=== PATIENT | female | born 1980 | race Caucasian/White ===

== ENCOUNTER 2017-05-20 03:23 | Emergency (ER) | payer MEDICAID ==
[2017-05-20 03:29] VITALS: O2SAT 96
[2017-05-20] MEDS ORDERED: IBUPROFEN 600 MG TAB PO ONE (03:44)
--- NOTE | 2017-05-20 03:50 | EDPHY ---
H & P Stated Complaint: LLE pain, atraumatic Time Seen by Provider: 05/20/17 03:33 HPI/ROS: Chief Complaint: Left leg pain HPI: 37-year-old woman with a history of sciatica presenting with worsening left leg pain this morning. Patient states the pain is been acting up for the last several days. Which went to get out of bed this morning it was a 10/10. Now is for at out of 10. She did take 4 baby aspirin because of so the medicines they had at home. No new numbness or weakness. She is ambulating without any difficulty. No new injuries. Last time she had this she had physical therapy and acupuncture and was taking ibuprofen. No fevers or chills. No history of IV drug use or risks for infection. ROS: 10 point Review of Systems is negative except as noted in the HPI. PMH: Schizoaffective disorder, sciatica Medications: Seroquel, Latuda, propranolol, metformin, Cogentin, Topamax Allergies: Invega, Risperdal, Abilify Social History: No smoking, no alcohol, no recreational drug use Family History: non-contributory Physical Exam: Gen: Awake, Alert, No Distress HEENT: Nose: no rhinorrhea Eyes: PERRLA, EOMI Mouth: Moist mucosa Neck: Supple, no JVD Chest: nontender, lungs clear to auscultation Heart: S1, S2 normal, no murmur Abd: Soft, non-tender, no guarding Back: no CVA tenderness, no midline tenderness Ext: no edema, non-tender Skin: no rash Neuro: CN II-XII intact, Sensation grossly intact, Strength 5/5 in bilateral upper and lower extremities Normal straight leg raise. Sensations intact in all dermatomes. Normal deep tendon reflexes bilateral lower extremities, toes are downgoing - Personal History LMP (Females 10-55): IUD In Place Current Tetanus/Diphtheria Vaccine: Yes - Medical/Surgical History Hx Asthma: No Hx Chronic Respiratory Disease: No Hx Diabetes: No Hx Cardiac Disease: No Hx Renal Disease: No Hx Cirrhosis: No Hx Alcoholism: Yes Hx HIV/AIDS: No Hx Splenectomy or Spleen Trauma: No Other PMH: SCHIZOAFFECTIVE, CARPAL TUNNEL, RECOVERING ALCOHOLIC - Social History Smoking Status: Never smoked Constitutional: Initial Vital Signs Temperature (C) 36.8 C 05/20/17 03:26 Heart Rate 55 L 05/20/17 03:26 Respiratory Rate 14 05/20/17 03:26 Blood Pressure 100/65 05/20/17 03:26 O2 Sat (%) 96 05/20/17 03:26 O2 Delivery Mode Room Air Allergies/Adverse Reactions: aripiprazole [From Abilify] Allergy (Verified 11/19/16 18:22) paliperidone [From Invega] Allergy (Verified 11/19/16 18:22) risperidone Allergy (Verified 11/19/16 18:22) shellfish derived Allergy (Verified 11/19/16 18:22) Home Medications: Medication Instructions Recorded Seroquel 02/05/16 Cogentin 02/17/16 Metformin 1000 mg 02/17/16 Topamax 02/17/16 Latuda 11/19/16 MIRENA 11/19/16 Medical Decision Making ED Course/Re-evaluation: Patient is feeling improved. She is ambulating without any difficulties in the emergency department. Will discharge with follow-up with primary care physician [id number] analgesia. - Data Points Medications Given: Discontinued Medications Ibuprofen (Motrin) 600 mg PO EDNOW ONE Stop: 05/20/17 03:45 Last Admin: 05/20/17 03:55 Dose: 600 mg Departure - Departure Disposition: Home, Routine, Self-Care Clinical Impression: Sciatica Condition: Good Instructions: Sciatica (ED) Additional Instructions: Follow up with primary care physician in 3-4 days for re-evaluation. You may take ibuprofen 600 mg 3 times a day for aches and pains. You may also take acetaminophen as needed for pain. Return emergency depart for increasing pain, numbness, weakness, or any other concerns. Referrals: [facility] [Other] - As per Instructions
[2017-05-20 04:28] VITALS: BP 104/64; PULSE 61; RESP 15; TEMP 97.9
== END 2017-05-20 04:28 | disposition home or self-care (01) ==
DX: M54.30 Sciatica, unspecified side (principal)

== ENCOUNTER 2017-05-22 17:12 | Emergency (ER) | payer MEDICAID ==
[2017-05-22 17:22] VITALS: RESP 16; TEMP 97.7
--- NOTE | 2017-05-22 18:08 | EDPHY ---
H & P Stated Complaint: Pain in left leg from hip to ankle.Seen earlier this week, Source: Patient Exam Limitations: No limitations - Medical/Surgical History Hx Asthma: No Hx Chronic Respiratory Disease: No Hx Diabetes: No Hx Cardiac Disease: No Hx Renal Disease: No Hx Cirrhosis: No Hx Alcoholism: Yes Hx HIV/AIDS: No Hx Splenectomy or Spleen Trauma: No Other PMH: SCHIZOAFFECTIVE, CARPAL TUNNEL, RECOVERING ALCOHOLIC - Social History Smoking Status: Never smoked HPI/ROS: CHIEF COMPLAINT: Left sciatica HISTORY OF PRESENT ILLNESS: Patient complains of left-sided sciatica. This has been present for several days. Originally started to 3 months ago. Over the past few days it has been mild to moderate pain. Starts in the left buttock and radiates down the left leg. No numbness, tingling or weakness. No midline low back pain. No saddle anesthesia. No incontinence of bowel or bladder. She did have an injury back in January, for which she was never evaluated with x-ray. She has no ongoing or acute pain in the low back at this time. Been taking ibuprofen with minimal improvement. It is better when she lays still. Worse when she ambulates or bears weight. No other associated complaints or modifying factors. REVIEW OF SYSTEMS: Ten systems reviewed and are negative unless otherwise noted in the HPI PAST MEDICAL HISTORY: Schizoaffective disorder, sciatica SOCIAL HISTORY: Nonsmoker. FAMILY HISTORY: Noncontributory EXAMINATION General Appearance: Alert, no distress Head: normocephalic, atraumatic Eyes: Pupils equal and round, no conjunctival pallor or injection Respiratory: No distress or retractions Cardiovascular: Regular rate. Pulses are intact distally in symmetrically 2+ in the DP Back: non-tender, no bony abnormalities. No crepitus, step-off or deformity. Neurological: GCS 15. A&O, nonfocal, antalgic but steady gait. Strength is symmetric in all 4 limbs. symmetric patellar reflexes at 2+ Skin: Warm and dry, no rash. No petechiae or purpura. Extremities: Tenderness over the left upper buttock. No bony tenderness of the lower extremity otherwise. Range of motion is intact but painful with flexion extension of the hip and straight leg raises. Psychiatric: Mood and affect normal DIFFERENTIAL DIAGNOSES: Including but not limited to sciatica, lumbar radiculopathy, neuropathy, neurapraxia, lumbar fracture MDM: 6:15 p.m. Left lower extremity pain consistent with previous episodes of sciatica for the patient. She has no low back pain at this time. No new trauma but did have a fall back in January, for which she never had an x-ray. She is fully neuro intact without any sensory or motor deficits. I have ordered x-ray of the lumbar spine, Flexeril and prednisone. Suspected this is truly sciatica. She is in no acute distress. 6:55 p.m. X-ray is unremarkable for acute fractures. There is no levoscoliosis noted. She is actually ambulatory in the room at this time. Feeling somewhat better. Discharged home with 4 more days of steroid, Flexeril p.r.n., Underwood p.r.n. and instructions to follow up with specialist for definitive care. Return here for worsening pain, weakness, numbness, tingling, incontinence or difficulty ambulating. She is comfortable this plan and discharged home stable condition, ambulatory without assistance. SUPERVISION: This patient was independently evaluated without direct examination by the attending physician. Case was discussed with attending physician. (Silvio Otero ) Constitutional: Initial Vital Signs Temperature (C) 97.7 F 05/22/17 17:19 Heart Rate 71 05/22/17 17:19 Respiratory Rate 16 05/22/17 17:19 Blood Pressure 103/66 05/22/17 17:19 O2 Sat (%) 97 05/22/17 17:19 O2 Delivery Mode Room Air Allergies/Adverse Reactions: aripiprazole [From Abilify] Allergy (Verified 11/19/16 18:22) paliperidone [From Invega] Allergy (Verified 11/19/16 18:22) risperidone Allergy (Verified 11/19/16 18:22) shellfish derived Allergy (Verified 11/19/16 18:22) Home Medications: Medication Instructions Recorded Seroquel 02/05/16 Cogentin 02/17/16 Metformin 1000 mg 02/17/16 Topamax 02/17/16 Latuda 11/19/16 MIRENA 11/19/16 Cyclobenzaprine [Flexeril 10 MG 10 mg PO TID PRN #15 tab 05/22/17 (*)] Hydrocodone/APAP 5/325 [Underwood 1 - 2 tab PO Q4H PRN #14 tab 05/22/17 5/325 (*)] predniSONE [Deltasone] 60 mg PO DAILY #12 tablet 05/22/17 Medical Decision Making - Diagnostics Imaging Results: Imaging Impressions Lumbar Spine X-Ray 05/22/17 18:13 Impression: 1. Mild levoscoliosis, which may be positional. 2. No lumbar compression fractures, spondylolisthesis, or significant degenerative changes. ED Course/Re-evaluation: I did not see this patient while she was in the emergency department. However her care was discussed with the PA while the patient was in the department. I agree with treatment plan and management (Victor M Tamez) - Data Points Medications Given: Discontinued Medications Cyclobenzaprine HCl (Flexeril) 10 mg PO EDNOW ONE Stop: 05/22/17 18:15 Last Admin: 05/22/17 18:23 Dose: 10 mg Prednisone (Prednisone) 60 mg PO EDNOW ONE Stop: 05/22/17 18:15 Last Admin: 05/22/17 18:23 Dose: 60 mg Departure - Departure Disposition: Home, Routine, Self-Care Clinical Impression: Sciatica Qualifiers: Laterality: left Qualified Code(s): M54.32 - Sciatica, left side Condition: Good Instructions: Sciatica (ED), Lumbar Radiculopathy (ED) Additional Instructions: 1. Return to the ER for worsening pain, numbness, tingling, weakness, incontinence 2. Follow up with specialist for definitive care Referrals: [facility] [Other] - As per Instructions Ernesto Morin MD [Medical Doctor] - As per Instructions Prescriptions: Cyclobenzaprine [Flexeril 10 MG (*)] 10 mg PO TID PRN #15 tab PRN Reason: Spasms Hydrocodone/APAP 5/325 [Underwood 5/325 (*)] 1 - 2 tab PO Q4H PRN #14 tab PRN Reason: Pain, Moderate predniSONE [Deltasone] 60 mg PO DAILY #12 tablet
[2017-05-22] MEDS ORDERED: CYCLOBENZAPRINE 10 MG TAB PO ONE (18:14)
[2017-05-22] MEDS ORDERED: predniSONE 20 MG TAB PO ONE (18:14)
[2017-05-22 19:09] VITALS: BP 106/68; PULSE 72; O2SAT 96
== END 2017-05-22 19:09 | disposition home or self-care (01) ==
DX: M54.32 Sciatica, left side (principal)

== ENCOUNTER 2017-05-28 04:33 | Emergency (ER) | payer MEDICAID ==
[2017-05-28 04:40] VITALS: BP 96/60; PULSE 62; RESP 14; TEMP 97.5; O2SAT 97
--- NOTE | 2017-05-28 04:52 | EDPHY ---
H & P Stated Complaint: L leg pain HPI/ROS: HPI CHIEF COMPLAINT: Left leg pain HISTORY OF PRESENT ILLNESS: This patient 37-year-old female significant past medical history for schizoaffective disorder, previous alcohol use, presents emergency room with left leg pain consistent with sciatica. She was seen here previously 2 separate visits. She is having a hard time getting follow-up care with a primary care doctor. She states she has been doing rather well. She has been taking the medications as prescribed. She presents emergency room this evening with left flank pain it is described as sharp stabbing down her left gluteus left posterior leg to her knee. Does not go to her foot. It is worse when she goes to walk with leg movement. Better at rest. Denies recent trauma. No fever. No saddle anesthesia no numbness or tingling, no focal weakness. No midline lumbar back pain. No trauma. I did review her previous 2 ER visits for this. She does tell me that she took 800 mg ibuprofen prior to arrival, and now is feeling better she tells me she does really feel like she needs to be here given that her pain is well controlled now. She is having trouble getting with her primary care doctor I told her to please call him again and states that she was in the emergency room. They should follow up sooner. She probably would benefit from physical therapy. I have also referred her Neurosurgery. She does understand of course to follow up with primary care doctor however she has severe pain worsening of condition she should return emergency room she understands. Explain or place her on a short course of steroids again for 3 days, Flexeril, and continue ibuprofen with food not empty stomach. Past Medical History: Alcoholism, sciatica, schizoaffective disorder Past Surgical History: No recent surgical history Social History: Denies daily use of drugs alcohol tobacco products Family History: Noncontributory ROS REVIEW OF SYSTEMS: A comprehensive 10 point review of systems is otherwise negative aside from elements mentioned in the history of present illness. Exam Constitutional triage nursing summary reviewed, vital signs reviewed, awake/ alert. Eyes normal conjunctivae and sclera, EOMI, PERRLA. HENT normal inspection, atraumatic, moist mucus membranes, no epistaxis, neck supple/ no meningismus, no raccoon eyes. Respiratory clear to auscultation bilaterally, normal breath sounds, no respiratory distress, no wheezing. Cardiovascular rate normal, regular rhythm, no murmur, no edema, distal pulses normal. Gastrointestinal soft, non-tender, no rebound, no guarding, normal bowel sounds, no distension, no pulsatile mass. Genitourinary no CVA tenderness. Musculoskeletal no midline vertebral tenderness, full range of motion, no calf swelling, no tenderness of extremities, no meningismus, good pulses, neurovascularly intact. Left leg: Neurovascular intact good distal pulse. Warm extremity good cap refill, good ambulate well. No midline lumbar spine pain. Skin pink, warm, & dry, no rash, skin atraumatic. Neurologic awake, alert and oriented x 3, AAOx3, moves all 4 extremities equally, motor intact, sensory intact, CN II-XII intact, normal cerebellar, normal vision, normal speech. Psychiatric normal mood/affect. Heme/Lymph/Immune no lymphadenopathy. Differential Diagnosis: Includes but is not limited to in a particular order, nerve root compression, annular tear, sciatica, compression fracture, doubt epidural abscess. Medical Decision Making: Plan for this patient here prednisone in the emergency room, Flexeril. Close follow-up with her primary care doctor. Referral to Neurosurgery. Do recommend she gets physical therapy. She understands what to return to the emergency room for worsening pain, numbness or tingling, focal weakness, saddle anesthesia, fever. Source: Patient - Personal History LMP (Females 10-55): IUD In Place Current Tetanus/Diphtheria Vaccine: Yes - Medical/Surgical History Hx Asthma: No Hx Chronic Respiratory Disease: No Hx Diabetes: No Hx Cardiac Disease: No Hx Renal Disease: No Hx Cirrhosis: No Hx Alcoholism: Yes Hx HIV/AIDS: No Hx Splenectomy or Spleen Trauma: No Other PMH: PMHx: SCHIZOAFFECTIVE, CARPAL TUNNEL, RECOVERING ALCOHOLIC. PSHx: uterine fibroid removal, hand surgery (R) - Social History Smoking Status: Never smoked Constitutional: Initial Vital Signs Temperature (C) 36.4 C 05/28/17 04:37 Heart Rate 62 05/28/17 04:37 Respiratory Rate 14 05/28/17 04:37 Blood Pressure 96/60 L 05/28/17 04:37 O2 Sat (%) 97 05/28/17 04:37 O2 Delivery Mode Room Air Allergies/Adverse Reactions: aripiprazole [From Abilify] Allergy (Verified 11/19/16 18:22) paliperidone [From Invega] Allergy (Verified 11/19/16 18:22) risperidone Allergy (Verified 11/19/16 18:22) shellfish derived Allergy (Verified 11/19/16 18:22) Home Medications: Medication Instructions Recorded Seroquel 02/05/16 Cogentin 02/17/16 Metformin 1000 mg 02/17/16 Topamax 02/17/16 Latuda 11/19/16 MIRENA 11/19/16 Cyclobenzaprine [Flexeril 10 MG 10 mg PO TID PRN #15 tab 05/22/17 (*)] Cogentin 05/28/17 Cyclobenzaprine [Flexeril 10 MG 10 mg PO TID PRN #15 tab 05/28/17 (*)] Propranolol HCl 05/28/17 predniSONE 60 mg PO DAILY #12 tab 05/28/17 predniSONE 60 mg PO DAILY #9 tab 05/28/17 Departure - Departure Disposition: Home, Routine, Self-Care Clinical Impression: Sciatica Qualifiers: Laterality: left Qualified Code(s): M54.32 - Sciatica, left side Condition: Good Instructions: Sciatica (ED), Lumbar Radiculopathy (ED) Additional Instructions: 1. Rest. 2. Use ice to help with back pain. 3. Take prednisone for 4 days. 4. Take her ibuprofen every 6-8 hours for pain control take it with a full stomach. 5. Return emergency room if you have severe pain. 6. I do recommend he follow up with her primary care doctor get set up for physical therapy. 7. I have referred you to Neurosurgery. Referrals: [facility] [Other] - As per Instructions Wilton Pettit MD [Medical Doctor] - As per Instructions Prescriptions: Cyclobenzaprine [Flexeril 10 MG (*)] 10 mg PO TID PRN #15 tab PRN Reason: Spasms predniSONE 60 mg PO DAILY #12 tab predniSONE 60 mg PO DAILY #9 tab
[2017-05-28] MEDS ORDERED: predniSONE 20 MG TAB PO ONE (04:53)
[2017-05-28] MEDS ORDERED: CYCLOBENZAPRINE 10 MG TAB PO ONE (04:53)
== END 2017-05-28 05:03 | disposition home or self-care (01) ==
DX: M54.32 Sciatica, left side (principal)

== ENCOUNTER 2017-06-07 04:09 | Emergency (ER) | payer MEDICAID ==
[2017-06-07 04:15] VITALS: RESP 16
--- NOTE | 2017-06-07 04:20 | EDPHY ---
H & P Stated Complaint: left leg pain- hx sciatica HPI/ROS: HPI CHIEF COMPLAINT: Left flank pain HISTORY OF PRESENT ILLNESS: This patient is a 37-year-old male significant past medical history for schizoaffective disorder, alcoholism and sciatica. Previously seen by myself for left-sided leg pain and sciatica. She presents to the emergency room with left leg pain consistent with her sciatica. She tells me she gets sharp stabbing pain left gluteus, left lateral posterior thigh down to her knee but does not go below her knee. Worse with leg movement. Better at rest. She decided come in the emergency room as she was having ongoing pain was prevented her from sleep. Ibuprofen did not help. She does tell me that she saw and follow up with her primary care doctor, also scheduled a physical therapy session. She also has had acupuncture that is help. She has not seen her surgery. She denies bowel or bladder incontinence, denies saddle anesthesia, denies midline back pain. Denies leg weakness. Pain is intermittent. Currently active. Here in the emergency room she is requesting Toradol IM, and Flexeril. Past Medical History: Sciatica, schizoaffective disorder, alcoholism Past Surgical History: No recent surgery Social History: Denies daily use of drugs alcohol tobacco Family History: Noncontributory ROS REVIEW OF SYSTEMS: A comprehensive 10 point review of systems is otherwise negative aside from elements mentioned in the history of present illness. Exam Constitutional triage nursing summary reviewed, vital signs reviewed, awake/ alert. Eyes normal conjunctivae and sclera, EOMI, PERRLA. HENT normal inspection, atraumatic, moist mucus membranes, no epistaxis, neck supple/ no meningismus, no raccoon eyes. Respiratory clear to auscultation bilaterally, normal breath sounds, no respiratory distress, no wheezing. Cardiovascular rate normal, regular rhythm, no murmur, no edema, distal pulses normal. Gastrointestinal soft, non-tender, no rebound, no guarding, normal bowel sounds, no distension, no pulsatile mass. Genitourinary no CVA tenderness. Musculoskeletal no midline vertebral tenderness, full range of motion, no calf swelling, no tenderness of extremities, no meningismus, good pulses, neurovascularly intact. Skin pink, warm, & dry, no rash, skin atraumatic. Neurologic awake, alert and oriented x 3, AAOx3, moves all 4 extremities equally, motor intact, sensory intact, CN II-XII intact, normal cerebellar, normal vision, normal speech. Psychiatric normal mood/affect. Heme/Lymph/Immune no lymphadenopathy. Differential Diagnosis: Includes but is not limited to in a particular order, sciatica, nerve root compression, annular tear, disc herniation, compression fracture. Medical Decision Making: Plan for this patient Toradol 30 mg IM, Flexeril 10 mg p.o.. Re-evaluate. Re-evaluation: 0519AM: Patient is feeling much better after IM Toradol, p.o. flexible. Ready for discharge home. Source: Patient - Personal History LMP (Females 10-55): Now Current Tetanus Diphtheria and Acellular Pertussis (TDAP): Yes - Medical/Surgical History Hx Asthma: No Hx Chronic Respiratory Disease: No Hx Diabetes: No Hx Cardiac Disease: No Hx Renal Disease: No Hx Cirrhosis: No Hx Alcoholism: Yes Hx HIV/AIDS: No Hx Splenectomy or Spleen Trauma: No Other PMH: PMHx: SCHIZOAFFECTIVE, CARPAL TUNNEL, RECOVERING ALCOHOLIC. PSHx: uterine fibroid removal, hand surgery (R) - Social History Smoking Status: Never smoked Constitutional: Initial Vital Signs Temperature (C) 36.6 C 06/07/17 04:13 Heart Rate 62 06/07/17 04:13 Respiratory Rate 16 06/07/17 04:13 Blood Pressure 107/76 06/07/17 04:13 O2 Sat (%) 98 06/07/17 04:13 Allergies/Adverse Reactions: aripiprazole [From Abilify] Allergy (Verified 06/07/17 04:12) paliperidone [From Invega] Allergy (Verified 06/07/17 04:12) risperidone Allergy (Verified 06/07/17 04:12) shellfish derived Allergy (Verified 06/07/17 04:12) Home Medications: Medication Instructions Recorded Seroquel 02/05/16 Cogentin 02/17/16 Metformin 1000 mg 02/17/16 Topamax 02/17/16 Latuda 11/19/16 MIRENA 11/19/16 Cyclobenzaprine [Flexeril 10 MG 10 mg PO TID PRN #15 tab 05/22/17 (*)] Cogentin 05/28/17 Cyclobenzaprine [Flexeril 10 MG 10 mg PO TID PRN #15 tab 05/28/17 (*)] Propranolol HCl 05/28/17 predniSONE 60 mg PO DAILY #12 tab 05/28/17 predniSONE 60 mg PO DAILY #9 tab 05/28/17 Cyclobenzaprine [Flexeril 10 MG 10 mg PO TID PRN #15 tab 06/07/17 (*)] Medical Decision Making - Data Points Medications Given: Discontinued Medications Cyclobenzaprine HCl (Flexeril) 10 mg PO EDNOW ONE Stop: 06/07/17 04:26 Last Admin: 06/07/17 04:32 Dose: 10 mg Ketorolac Tromethamine (Toradol) 30 mg IM EDNOW ONE Stop: 06/07/17 04:26 Last Admin: 06/07/17 04:32 Dose: 30 mg Departure - Departure Disposition: Home, Routine, Self-Care Clinical Impression: Sciatica Qualifiers: Laterality: right Qualified Code(s): M54.31 - Sciatica, right side Condition: Good Instructions: Sciatica (ED), Lumbar Radiculopathy (ED) Additional Instructions: 1. Rest. 2. Ice her back. 3. Take anti-inflammatory pain medicine like ibuprofen or Tylenol for pain control. 4. Flexeril for muscle spasm. 5. Follow up with her primary care doctor and physical therapist. Referrals: Kirstie Gaspar PA [Primary Care Provider] - As per Instructions Prescriptions: Cyclobenzaprine [Flexeril 10 MG (*)] 10 mg PO TID PRN #15 tab PRN Reason: Spasms
[2017-06-07] MEDS ORDERED: CYCLOBENZAPRINE 10 MG TAB PO ONE (04:25)
[2017-06-07] MEDS ORDERED: KETOROLAC 30 MG/1 ML SDV IM ONE (04:25)
[2017-06-07 05:30] VITALS: BP 103/81; PULSE 60; TEMP 98.1; O2SAT 97
== END 2017-06-07 05:30 | disposition home or self-care (01) ==
DX: M54.31 Sciatica, right side (principal)
CPT/HCPCS: J1885

== ENCOUNTER 2017-06-09 01:16 | Emergency (ER) | payer MEDICAID ==
[2017-06-09 01:26] VITALS: BP 116/79; PULSE 73; RESP 16; TEMP 97.7; O2SAT 97
[2017-06-09] MEDS ORDERED: KETOROLAC 30 MG/1 ML SDV IM ONE (01:59)
[2017-06-09] MEDS ORDERED: LIDOCAINE 5% 1 EA PATCH TD ONE (02:01)
--- NOTE | 2017-06-09 02:02 | EDPHY ---
H & P Stated Complaint: sciatic pain for 3 weeks Time Seen by Provider: 06/09/17 01:44 HPI/ROS: HPI The patient presents with lower lumbar pain which has been present for the last several weeks, though worse tonight. The pain is achy, left-sided, radiates down her left leg, is intermittent. Is actually feeling much better since she took ibuprofen 3 hours ago. She has been taking ibuprofen, Tylenol, Flexeril p.r.n.. She has been referred to physical therapy. She does not have any numbness, tingling, weakness of her leg. This is her 4th visit in the last 1 month for similar. On May 22 she had x-rays of her lumbar spine which were fairly unremarkable. She thinks her pain is aggravated from sleeping on a new air mattress.. REVIEW OF SYSTEMS Constitutional: No fever, no chills. Eyes: No discharge. ENT: No sore throat. Cardiovascular: No chest pain, no palpitations. Respiratory: No cough, no shortness of breath. Gastrointestinal: No abdominal pain, no vomiting. Genitourinary: No hematuria. Musculoskeletal: No back pain. Skin: No rashes. Neurological: No headache. PMHx: Schizoaffective disorder, sciatica Soc Hx: Housed PHYSICAL General Appearance: Alert, no distress Eyes: Pupils equal and round no pallor or injection ENT, Mouth: Mucous membranes moist Respiratory: There are no retractions, lungs are clear to auscultation Cardiovascular: Regular rate and rhythm Gastrointestinal: Abdomen is soft and non-tender, no masses, bowel sounds normal Neurological: A&O, 5/5 strength in lower extremities which is symmetric, sensation is intact to light touch, positive straight leg raise on the left Skin: Warm and dry, no rashes Musculoskeletal: No midline tenderness of her back, Extremities: symmetrical, full range of motion Psychiatric: Patient is oriented X 3, there is no agitation Source: Patient Exam Limitations: No limitations - Personal History LMP (Females 10-55): IUD In Place Current Tetanus/Diphtheria Vaccine: Yes Current Tetanus Diphtheria and Acellular Pertussis (TDAP): Yes - Medical/Surgical History Hx Asthma: No Hx Chronic Respiratory Disease: No Hx Diabetes: No Hx Cardiac Disease: No Hx Renal Disease: No Hx Cirrhosis: No Hx Alcoholism: Yes Hx HIV/AIDS: No Hx Splenectomy or Spleen Trauma: No Other PMH: PMHx: SCHIZOAFFECTIVE, CARPAL TUNNEL, RECOVERING ALCOHOLIC. PSHx: uterine fibroid removal, hand surgery (R) - Social History Smoking Status: Never smoked Constitutional: Initial Vital Signs Temperature (C) 36.5 C 06/09/17 01:21 Heart Rate 73 06/09/17 01:21 Respiratory Rate 16 06/09/17 01:21 Blood Pressure 116/79 06/09/17 01:21 O2 Sat (%) 97 06/09/17 01:21 O2 Delivery Mode Room Air Allergies/Adverse Reactions: aripiprazole [From Abilify] Allergy (Verified 06/07/17 04:12) paliperidone [From Invega] Allergy (Verified 06/07/17 04:12) risperidone Allergy (Verified 06/07/17 04:12) shellfish derived Allergy (Verified 06/07/17 04:12) Home Medications: Medication Instructions Recorded Seroquel 02/05/16 Metformin 1000 mg 02/17/16 Topamax 02/17/16 Latuda 11/19/16 MIRENA 11/19/16 Cogentin 05/28/17 Propranolol HCl 05/28/17 Cyclobenzaprine [Flexeril 10 MG 10 mg PO TID PRN #15 tab 06/07/17 (*)] Medical Decision Making Differential Diagnosis: This is a 37-year-old female with schizoaffective disorder who presents with left-sided lower back pain which radiates for the last month, 5th ER visit for same, diagnosed with sciatica, lumbar spinal films unremarkable. She has had continued pain though is on anti-inflammatories. Her pain is improved since arriving in the ER. She has no neurologic deficits. She has no red flag features. I feel she is suffering from sciatica and I have explained that the pain from this can last for weeks to months. She is on good medical treatment currently. I will plan for a Toradol injection IM and Lidoderm patch. She will continue with acupuncture, she has been referred to physical therapy are ready. Differential diagnosis includes sciatica, disc herniation, less likely compression fracture, less likely cauda equina given no red flag features. Departure - Departure Disposition: Home, Routine, Self-Care Clinical Impression: Sciatica Qualifiers: Laterality: left Qualified Code(s): M54.32 - Sciatica, left side Condition: Good Instructions: Sciatica (ED) Additional Instructions: Please follow-up with your doctor as planned. Referrals: Kirstie Gaspar PA [Primary Care Provider] - As per Instructions
[2017-06-09] MEDS ORDERED: LIDOCAINE 5% 1 EA PATCH TD SCH (09:00)
[2017-06-09] MEDS ORDERED: PATCH REMOVAL 1 EA PATCH TD SCH (21:00)
== END 2017-06-09 02:20 | disposition home or self-care (01) ==
DX: M54.32 Sciatica, left side (principal)
CPT/HCPCS: J1885

== ENCOUNTER 2017-11-16 17:31 | Emergency (ER) | payer MEDICAID ==
[2017-11-16 17:45] VITALS: BP 101/66; PULSE 64; RESP 16; TEMP 98.6; O2SAT 96
--- NOTE | 2017-11-16 17:53 | EDPHY ---
H & P Stated Complaint: SLiced R ring finger Source: Patient Exam Limitations: No limitations - Personal History LMP (Females 10-55): IUD In Place Current Tetanus Diphtheria and Acellular Pertussis (TDAP): Yes - Medical/Surgical History Hx Asthma: No Hx Chronic Respiratory Disease: No Hx Diabetes: No Hx Cardiac Disease: No Hx Renal Disease: No Hx Cirrhosis: No Hx Alcoholism: Yes Hx HIV/AIDS: No Hx Splenectomy or Spleen Trauma: No Other PMH: PMHx: SCHIZOAFFECTIVE, CARPAL TUNNEL, RECOVERING ALCOHOLIC. PSHx: uterine fibroid removal, hand surgery (R) - Social History Smoking Status: Never smoked Time Seen by Provider: 11/16/17 17:52 HPI/ROS: HPI: This is a 37-year-old female who presents with Chief Complaint: Sliced R ring finger Location: Right ring finger Quality: Laceration Duration: Prior to arrival Signs and Symptoms: + bleeding, no radiation, no numbness, no weakness, no tingling, no decreased range of motion, no swelling, + pain Timing: Acute Severity: Mild Context: Patient reports that she was at the gym and she stuck her hand in her gym bag and accidentally cut her right ring finger on a razor that she had in there. She felt immediate pain and then it started to bleed. She applied direct pressure and immediately drove herself to the emergency room. Right- hand dominant. Denies any paresthesias/decreased range of motion/skin color changes. Unsure of last tetanus. Modifying Factors: Direct pressure Comment: ROS: see HPI Constitutional: No fever, no chills, no weight loss Eyes: No blurred vision Respiratory: No shortness of breath, no cough Cardiovascular: No chest pain Gastrointestinal: No nausea, no vomiting no diarrhea Genitourinary: No dysuria Extremities: No myalgias Neurologic: No weakness, no numbness Skin: No rashes Hematologic: No bruising, no bleeding MEDICAL/SURGICAL/SOCIAL HISTORY: PMHx: SCHIZOAFFECTIVE, CARPAL TUNNEL, RECOVERING ALCOHOLIC PSHx: uterine fibroid removal, hand surgery (R) Social history: Employed. CONSTITUTIONAL: Adult pleasant white female, awake and alert, no obvious distress HEENT: Atraumatic and normocephalic, PERRL, EOMI. Tympanic membranes clear. Oropharynx clear, no exudate and moist pink mucosa. Airway patent. No lymphadenopathy. No meningismus. Cardiovascular: Normal S1/S2, regular rate, regular rhythm, without murmur rub or gallop. PULMONARY/CHEST: Symmetrical and nontender. Clear to auscultation bilaterally. Good air movement. No accessory muscle usage. ABDOMEN: Soft, nondistended, nontender, no rebound, no guarding, no peritoneal signs, no masses or organomegaly. No CVAT. 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 No nail involvement. DIP/PIP /MCP joint flexion, extension, light touch sensation intact. no deformities, no clubbing, no cyanosis or edema. NEUROLOGICAL: no focal neuro deficits. GCS 15. SKIN: Warm and dry, no erythema. no rash. Good capillary refill. (Gaby Otero) Constitutional: Initial Vital Signs Temperature (C) 37 C 11/16/17 17:35 Heart Rate 64 11/16/17 17:35 Respiratory Rate 16 11/16/17 17:35 Blood Pressure 101/66 11/16/17 17:35 O2 Sat (%) 96 11/16/17 17:35 O2 Delivery Mode Room Air Allergies/Adverse Reactions: aripiprazole [From Abilify] Allergy (Verified 11/16/17 17:41) paliperidone [From Invega] Allergy (Verified 11/16/17 17:41) risperidone Allergy (Verified 11/16/17 17:41) shellfish derived Allergy (Verified 11/16/17 17:41) Home Medications: Medication Instructions Recorded Seroquel 02/05/16 Metformin 1000 mg 02/17/16 Topamax 02/17/16 Latuda 11/19/16 MIRENA 11/19/16 Propranolol HCl 05/28/17 Medical Decision Making Procedures: Procedure: Splint placement. A right caged finger splint was applied by the Emergency room attack. After application of the splint I returned and re-examined the patient. The splint was adequately immobilizing the joint and distal to the splint the patient's circulation and sensation was intact. (Gaby Otero) ED Course/Re-evaluation: Wound care ordered Tetanus booster given No signs of neurovascular compromise/tenting of skin/compartment syndrome/ extremities and joints examined above and below area of concern and are neurovascularly intact. Small skin avulsion with no indication for suture. Irrigated copiously; surgifoam; bacitracin; clean sterile dressing; cage finger splint applied No foreign bodies identified. This patient was seen under the supervision of my secondary supervising physician. I evaluated care for this patient independently. Discussed this patient with Dr. Wilcox who did not see the patient. (Gaby Otero) Differential Diagnosis: Differential diagnosis includes but is not limited to avulsion, laceration, nerve injury, tendon injury, foreign body. (Gaby Otero) - Data Points Medications Given: Discontinued Medications Diphtheria/Tetanus/Acell Pertussis (Boostrix) 0.5 ml IM .ONCE ONE Stop: 11/16/17 17:59 Last Admin: 11/16/17 18:10 Dose: 0.5 ml Departure - Departure Disposition: Home, Routine, Self-Care Clinical Impression: Avulsion of skin of finger without complication Condition: Good Instructions: Skin Avulsion (ED) Additional Instructions: Keep the dressing and splint dry and in place for 48 hours. After 48 hours, you may remove the dressing; wash the site daily with mild soap and water; then pat dry apply topical antibiotic ointment and clean sterile dressing until fully healed. Take Tylenol 650 mg every 4 hours and/or Ibuprofen 600 mg every 8 hours with food as needed for pain. Apply ice for 30 minutes at a time; 2-3 times per day for the next 1-2 days. Referrals: Kirstie Gaspar PA [Primary Care Provider] - As per Instructions
[2017-11-16] MEDS ORDERED: TDAP ADULT 0.5 ML INJ (BOOSTRIX) IM ONE (17:58)
== END 2017-11-16 18:22 | disposition home or self-care (01) ==
DX: S61.204A Unspecified open wound of right ring finger without damage to nail, initial encounter (principal); Z23 Encounter for immunization; W45.8XXA Other foreign body or object entering through skin, initial encounter
CPT/HCPCS: L3925